=== PATIENT | female | born 1970 | race African-American/Black ===

== ENCOUNTER 2016-04-25 07:25 | Day surgery (SDC) | payer OTHER ==
[~2016-04-25] VITALS: Ht 162.6 cm; Wt 105.2 kg
[~2016-04-25 07:25] MED LIST: ALBU18HF2 IH; MOME13HF2 IH
[2016-04-25] MEDS ORDERED: LACTATED RINGERS 1,000 ML IV SCH ×2 (08:00→09:39)
[2016-04-25 08:27] LABS: BASOPHILS % 0.9 % (0.0-2.0); DIFFERENTIAL COMMENT 0; EOSINOPHILS % 1.3 % (0.0-5.0); HEMATOCRIT. 36.8 % (36.0-48.0); MEAN CORPUSCULAR HEMOGLOBIN 25.7 pg (28.0-32.0); MEAN CORPUSCULAR HGB CONC 32.6 g/dL (31.0-37.0); MEAN CORPUSCULAR VOLUME 78.8 fL (81.0-99.0); MEAN PLATELET VOLUME 8.1 fl (7.4-10.4); MONOCYTES % 4.5 % (2.0-8.0); NEUTROPHILS % 50.3 % (40.0-76.0); PLATELET 303 x1000/uL (130-400); RED BLOOD CELL COUNT 4.67 mill/uL (4.2-5.4); WHITE BLOOD COUNT 6.7 x1000/uL (4.5-11.0)
[2016-04-25 08:30] LABS: CLARITY URINE CLEAR (CLEAR); COLOR URINE YELLOW (YELLOW); GLUCOSE URINE NEGATIVE (NEGATIVE); KETONES URINE NEGATIVE (NEGATIVE); LEUKOCYTE ESTERASE URINE NEGATIVE (NEGATIVE); NITRITE URINE NEGATIVE (NEGATIVE); OCCULT BLOOD URINE NEGATIVE (NEGATIVE); PROTEIN URINE NEGATIVE (NEGATIVE); SPECIFIC GRAVITY URINE 1.011 (1.005-1.030); UROBILINOGEN URINE 0.2 E.U./dL (0.2-1.0)
[2016-04-25 08:31] LABS: UCG SCREEN NEGATIVE
[2016-04-25 08:36] LABS: PARTIAL THROMBOPLASTIN TIME 26.5 sec (24.0-34.0); PROTHROMBIN TIME 10.1 sec
[2016-04-25] MEDS ORDERED: MIDAZOLAM HCL 2 MG/2 ML VIAL ONE (08:42)
[2016-04-25] MEDS ORDERED: ONDANSETRON HCL 4MG/2ML VIAL IV PRN (08:45)
[2016-04-25] MEDS ORDERED: FENTANYL CITRATE/PF 50MCG/ML 2ML VIAL IV PRN (08:45)
[2016-04-25] MEDS ORDERED: NEOSTIGMINE METHYLSULFATE 1MG/ML 10 ML VIAL ONE (09:34)
[2016-04-25] MEDS ORDERED: PROPOFOL 200MG/20ML VIAL IV ONE (09:34)
[2016-04-25] MEDS ORDERED: LIDOCAINE HCL 1% 20ML VIAL (Pyxis) INJ ONE (09:38)
[2016-04-25] MEDS ORDERED: ONDANSETRON HCL 4MG/2ML VIAL ONE (09:39)
[2016-04-25] MEDS ORDERED: DEXAMETHASONE 4MG/ML 1ML VIAL ONE (09:39)
== END 2016-04-25 11:50 | disposition home or self-care (01) ==
LOC: OR 07:25
PROVIDERS: ATTEND Obstetrics & Gynecology Obstetrics
DX: N92.1 Excessive and frequent menstruation with irregular cycle (principal); E11.9 Type 2 diabetes mellitus without complications; J45.909 Unspecified asthma, uncomplicated; Z80.8 Family history of malignant neoplasm of other organs or systems
CPT/HCPCS: 36415; 58558; 81003; 81025; 85025; 85610; 85730; 88305; J1100; J2250; J2405; J2710; J3490; J7120; J2704